=== PATIENT | female | born 1955 | race Caucasian/White ===

== ENCOUNTER → 2024-05-24 14:23 | Outpatient (REF) | payer MEDICARE, OTHER, SELFPAY ==
[2024-05-24 16:53] LABS: Hematocrit 38.7 % (37.0-47.0); Hemoglobin 12.9 g/dL (12.0-16.0); Mean Corp Hgb Conc. 33.3 g/dL (33.0-37.0); Mean Corpuscular Hgb 29.9 pg (27.0-31.0); Mean Corpuscular Volume 89.8 fL (81.0-99.0); Platelet Count 220 10^3/uL (130-400); Red Blood Cell Count 4.31 10^6/uL (4.20-5.40); Red Cell Dist. Width 13.2 % (11.5-14.5); White Blood Cell Count 26.8 10^3/uL (4.8-10.8)
[2024-05-24 17:08] LABS: Blood Urea Nitrogen 19 mg/dl (7-17); Calcium 10.3 mg/dl (8.4-10.2); Carbon Dioxide 26 mmol/L (22-30); Chloride 105 mmol/L (98-107); Glucose 87 mg/dl (70-99); Potassium 3.8 mmol/L (3.5-5.1); Sodium 144 mmol/L (135-145); eGFR > 60.00
[2024-05-24 17:33] LABS: % Basophils 0.3 % (0-2); % Eosinophils 0.7 % (0-6); % Immature Granulocytes 0.2 % (0-0.5); % Monocytes 2.4 % (1.7-9.3); % Neutrophils 13.4 % (42.2-75.2); Absolute Basophils 0.1 10^3/uL (0-0.2); Absolute Eosinophils 0.2 10^3/uL (0-0.7); Absolute Immature Granulocytes 0.1 10^3/uL (0-0.05); Absolute Lymphocytes 22.2 10^3/uL (1.2-3.4); Absolute Monocytes 0.7 10^3/uL (0.1-0.6); Absolute Neutrophils 3.6 10^3/uL (1.4-6.5); Nucleated Red Blood Cells % 0 %
== END ==
LOC: REG 14:23
PROVIDERS: ATTENDING PHYSICIAN Student in an Organized Health Care Education/Training Program; FAMILY PHYSICIAN Internal Medicine
DX: Z01.818 Encounter for other preprocedural examination (principal)
CPT/HCPCS: 36415; 80048; 85025; 93005

== ENCOUNTER 2024-06-06 11:09 | Emergency (ER) | payer MEDICARE, OTHER, SELFPAY ==
[2024-06-06 11:11] VITALS: BP 148/79
--- NOTE | 2024-06-06 12:34 | ED.GENMED ---
History of Present Illness
General
Chief Complaint: Fall
Time Seen by Provider: 06/06/24 11:24
History of Present Illness
History of Present Illness:
68-year-old female presents to the emergency department for evaluation of left hipAnd low back pain after a fall 2 days ago. She recently underwent a right foot surgery and has been nonweightbearing in a splint since the surgery, lost her balance
and fell onto her left side. She has had difficulty moving the left hip has been reporting midline low back pain. Denies any saddle anesthesias or loss of bladder or bowel function. Took ibuprofen this morning without significant change in pain
Review of Systems
Review of Systems
Allergies reviewed?: Yes
All Other Systems: ROS reviewed and negative except as documented in HPI and ROS
Phy Exam
Physical Exam
Physical Exam:
GEN: Well appearing, NAD, WDWN
HEENT: Oral mucosa moist, no scleral icterus
Cardiac: Regular rate
Lung: No respiratory distress, no tachypnea
MSK: No gross deformity or injuries. Positive midline lumbar spine tenderness, no paraspinous muscle tenderness. Lumbar range of motion is normal. There is mild tenderness to the left proximal thigh, left hip range of motion is normal but there
is pain with passive extension and flexion
Skin: Good color, no pallor or jaundice, no rashes
Neuro: AO x3, moves all extremities freely
Psych: Calm, cooperative
Course
Orders/Labs/Results
Orders:
Orders
06/06/24 11:32
CR Hip - LT w/wo Pel 2-3 Vw* Urgent
Comment:
Reason For Exam: fall L groin pain
Include a pelvis x-ray?: Yes
CR Lumbar Spine Comp Min 4 Vw* Urgent
Comment:
Reason For Exam: fall low back pain
06/06/24 12:35
Ketorolac [Toradol] 30 mg IM NOW STA
Vital Signs
Initial and Last Documented VS:
Initial Vital Signs
Temp Pulse Resp BP Pulse Ox
98.1 F 68 16 148/79 97
06/06/24 11:11 06/06/24 11:11 06/06/24 11:11 06/06/24 11:11 06/06/24 11:11
Last Documented Vital Signs
Temp Pulse Resp BP Pulse Ox
98.1 F 68 16 148/79 97
06/06/24 11:11 06/06/24 11:11 06/06/24 11:11 06/06/24 11:11 06/06/24 11:11
MDM/Problems Addressed
MDM/Problems Addressed:
Imaging reveals acute or subacute L1 and L3 compression fractures. I suspect at least 1 of these is acute and causing her symptoms and likely her hip pain is radicular the of the iliopsoas musculature. She would prefer to be discharged home which
is reasonable, will provide her with analgesics for pain and she will attempt to obtain a wheelchair as an outpatient due to her requirement for nonambulatory status on the right lower extremity
*Critical Care Note
Total Time (30-74mins, 75-104mins- exclusive of procedures): Not Applicable
ED Attending Note
-
Portions of this chart may have been created with voice recognition software.� Occasional wrong word or��sound alike� substitutions may have occurred due to the inherent limitations of voice recognition software.
Discharge Plan
Departure
Patient Disposition: Home (Routine Discharge)
Date of Disposition: 06/06/24
Time of Disposition: 12:35
Patient with high blood pressure during this ER visit?: No
Discharge Problem:
Closed compression fracture of lumbar vertebra
Instructions: Vertebral Compression Fracture (DC)
Prescriptions:
New
oxycodone-acetaminophen [Percocet] 5-325 mg tablet
1 tab PO Q6HPRN PRN (Reason: pain) Qty: 10 0RF
Referrals:
Capo Acharya, [Non-Admitting Privileges] -
Jame Marcus MD [Family Provider] -
Interventions
Interventions:
*Risk Screen - Suicide Last Done: 06/06/24 11:15
*Neglect/Abuse Screening Last Done: 06/06/24 11:15
ED- Fall Risk Assessment Last Done: 06/06/24 11:23
*ED COVID-19 Vaccine History Last Done: 06/06/24 11:15
*Nursing Disposition Last Done: 06/06/24 12:59
ED-Musculoskeletal Assessment Last Done: 06/06/24 11:23
Discharge Date and Time
Discharge Date/Time: 06/06/24 13:00
Print Language: [id number]
[2024-06-06] MEDS: TORADOL 30 MG IM (12:43)
== END 2024-06-06 13:00 | disposition home or self-care (01) ==
LOC: EMR 11:09
PROVIDERS: EMERGENCY PHYSICIAN Emergency Medicine; FAMILY PHYSICIAN Internal Medicine
DX: S32.018A Other fracture of first lumbar vertebra, initial encounter for closed fracture (principal); S32.038A Other fracture of third lumbar vertebra, initial encounter for closed fracture; W19.XXXA Unspecified fall, initial encounter
CPT/HCPCS: 99284; 96372; 72110; 73502